=== PATIENT | female | born 1970 | race African-American/Black ===

== ENCOUNTER 2017-04-26 17:53 | Emergency (ER) | payer BC, OTHER ==
[~2017-04-26] VITALS: Ht 162.6 cm; Wt 105.5 kg
[2017-04-26 17:55] VITALS: Ht 162.6 cm; Wt 105.5 kg
[2017-04-26] MEDS ORDERED: ONDANSETRON (ODT) 4 MG TAB ODT STA (19:02)
--- NOTE | 2017-04-26 19:22 | RADRPT ---
PROCEDURE: CT Brain without contrast. CLINICAL INDICATION: fall down stairs and hit back on head on concrete with LOC TECHNIQUE: A CT of the brain was performed on a [employer] 64-slice CT scanner utilizing axial imaging from the skull base through the vertex without IV contrast. Multiplanar reformatted images were made. Images were reviewed on a PACS workstation. The CTDIvol is 43.6 mGy and the DLP is 720 mGycm. COMPARISON: None FINDINGS: There is no intracranial hemorrhage, mass effect, or midline shift. No extra-axial fluid collection is seen. The ventricles and sulci are normal in size and configuration. The density of the brain is normal, and the win white matter differentiation appears well-preserved. There are nonspecific ca lcifications along the tentorium in the posterior fossa. The visualized paranasal sinuses and osseo us structures are grossly unremarkable. IMPRESSION: 1. No evidence of acute intracranial pathology. Physician Lobo Date Time Electronically viewed and signed by Murtaza Zuniga Physician on 04/26/2017 19:22 ML/
--- NOTE | 2017-04-26 19:27 | RADRPT ---
PROCEDURE: CT Cervical Spine. CLINICAL INDICATION: fall down stairs and hit back on head on concrete with LOC TECHNIQUE: A CT of the cervical spine was performed on a [employer] 64-slice CT scanner ut ilizing thin section axial images from the skull base through the thoracic inlet. Sagittal and tavon nal reformatted images were made. The CTDIvol is 22.3 mGy and the DLP is 517 mGycm. COMPARISON: None. FINDINGS: There is straightening of the cervical spine. No vertebral body subluxation is seen. No fractures are evident. There are multilevel uncovertebral degenerative arthritic changes The surrounding sof t tissues are normal in appearance. Mild multilevel degenerative changes of the dxh-bk-axqol cervic al spine are present as evidenced by disk space narrowing and small anterior osteophytes. No signifi cant disk bulge is present. The central canal and foramina are adequately patent at all levels. IMPRESSION: No acute fracture nor subluxation involving the cervical spine. Mild multilevel degenerative disk changes as well as chronic uncovertebral degenerative changes. Straightening of the normal cervical lordosis may be due to muscle spasm. Physician Lobo Date Time Electronically viewed and signed by Physician Lobo on 04/26/2017 19:26 ML/
[2017-04-26] MEDS ORDERED: morphine 10 MG INJ IM ONE (19:30)
--- NOTE | 2017-04-26 19:38 | ERD ---
ER Documentation Chief Complaint Date/Time DATE: 04/26/17 TIME: 19:33 Chief Complaint 8/10 head and right shoulder pain x 1 hour +KO HPI This is a 46-year-old -[place] female who presents to the emergency department with headache neck pain and right shoulder pain that occurred an hour prior to arrival. The patient stated she was at her sister's house when she slipped and fell down 5 steps. She hit the back of her head and right shoulder on cement. She stated she had a brief transient loss of consciousness of several seconds. She is complaining of a headache but denies any changes in vision and no numbness or tingling of her upper extremities. She indicates that the right shoulder pain is exacerbated with movement, 8 out of 10 in intensity and the headache is also 8 out of 10 in intensity. She denies any difficulty breathing. She has no chest pain or abdominal pain. She was able to ambulate afterwards and denies any pain of her lower extremities or hands. She is right-handed dominant. She did not take any analgesic medication prior to arrival ROS All systems reviewed and are negative except as per history of present illness. Allergies Allergies: Coded Allergies: No Known Allergy (Unverified , 04/26/17) PMhx/Soc Medical and Surgical Hx: pt denies Surgical Hx History of Surgery: No Anesthesia Reaction: No Hx Neurological Disorder: No Hx Respiratory Disorders: No Hx Cardiac Disorders: Yes (HTN) Hx Psychiatric Problems: No Hx Miscellaneous Medical Probl: No Hx Alcohol Use: No Hx Substance Use: No Hx Tobacco Use: No Smoking Status: Unknown if ever smoked Physical Exam Vitals Vital Signs Date Time Temp Pulse Resp B/P Pulse Ox O2 Delivery O2 Flow Rate FiO2 04/26/17 17:55 98.0 109 18 185/121 99 Physical Exam Constitutional:Well-developed. Well-nourished. HEENT:Normocephalic. Atraumatic.Pupils were equal round reactive to light. Moist mucous membranes.No tonsillar exudates. No nasoseptal hematoma. No hemotympanum. Neck: No nuchal rigidity. No lymphadenopathy. Posterior cervical spine tenderness over C4-C5 with no step-offs. Respiratory: Not using accessory muscles of respiration.Lungs were clear to auscultation bilaterally. No rhonchi. No rales. No wheezing. Cardiovascular: Regular rate regular rhythm.No murmurs. No rubs were appreciated.S1, S2 normal. Distal pulses are palpable 2+ bilaterally. GI: Abdomen was soft. Nontender. Non Distended. No pulsatile abdominal masses or bruits. No rebound. No guarding. Bowel sounds were present and normal. Muscle skeletal: Full range of motion of both the upper and lower extremities bilaterally.Normal muscle tone.No assymetrical calf tenderness or swelling. Tenderness of the right acromioclavicular joint and normal lie to the right humeral head. Flexion extension of the bilateral elbows appear grossly normal. No tenderness over the bilateral wrists. Skin: No petechia, no purpura. No lesions on the palms or the soles of the feet. No maculopapular rash. NEURO: Patient was alert, awake, orientated x3.No facial droop. Gait observed and normal with no ataxia.Speech had regular rate and rhythm. No focal neurological deficits. Sensation intact over the radial ulnar and median nerve just a patient bilaterally Results 24 hrs Current Medications Medications (Trade) Dose Ordered Sig/Susannah Route PRN Reason Start Time Stop Time Status Last Admin Dose Admin Morphine Sulfate (morphine) 4 mg ONCE ONCE IM 04/26/17 19:30 04/26/17 19:31 DC 04/26/17 19:30 Ondansetron HCl (Zofran Odt) 4 mg ONCE STAT ODT 04/26/17 19:02 04/26/17 19:05 DC 04/26/17 19:29 Procedures/MDM This patient presented to the emergency department with closed head injury after mechanical trip and fall. Utilizing the Nexus criteria radiographic imaging was obtained of the patient's head and neck. This was reviewed by myself and the radiologist and there is no evidence of acute fracture or dislocation. There is no intracerebral hemorrhage. The radiographic imaging of the patient's shoulder showed no evidence of fracture or dislocation. The patient received IV morphine and Zofran for analgesic control. I did indicate to the patient that she had symptoms suggestive of an acute concussion but she felt comfortable being discharged home and she had a friend who was going to be picking her up. She was placed in a shoulder sling for immobilization and comfort and afterwards showed no signs of neurovascular compromise station or compartment syndrome. She was instructed to undergo physiotherapy and follow-up with her primary care physician to prevent complications of the right shoulder and to undergo an MRI on an outpatient basis. She was sent home with analgesic medication which included Motrin and [place]. The patient was discharged home in fair condition. They were instructed to return to the emergency department at any time if there was any worsening of their condition. The patient stated they would follow up with their PCP in the next 24-48 hours to initiate a suitable medication regimen under the care of their PCP as well as to allow their PCP to monitor any drug reactions. The patient was discharged home with prescriptions after they gave informed consent to the new medication. They were also fully informed by myself on the adverse effects and adverse drug interactions in order to provide adequate safeguards to prevent possible adverse reactions to medications. Departure Diagnosis: Primary Impression: Sprain of cervical neck Encounter type: initial encounter Qualified Code: S13.9XXA - Sprain of cervical neck, initial encounter Additional Impressions: Head concussion Encounter type: initial encounter Loss of consciousness presence/duration: with LOC of 30 min or less Qualified Code: S06.0X1A - Head concussion, with LOC of 30 min or less, initial encounter Sprain of shoulder, right Encounter type: initial encounter Shoulder sprain type: unspecified sprain Qualified Code: S43.401A - Sprain of right shoulder, unspecified shoulder sprain type, initial encounter Condition: Fair MARY DUMAS Apr 26, 2017 19:38
[2017-04-26] MEDS ORDERED: IBUP800T25 PO (19:39)
[2017-04-26] MEDS ORDERED: HYDR-906 PO (19:39)
--- NOTE | 2017-04-26 20:00 | RADRPT ---
PROCEDURE: XR Shoulder. CLINICAL INDICATION: Trauma TECHNIQUE: 2 views of the right shoulder are available for review. COMPARISON: None available FINDINGS: The humeral head is located. Mild AC joint arthrosis. There is no acute osseous or articular abnorm ality. No evidence for fracture. The visualized portions of the right lung are clear . IMPRESSION: 1. No acute osseous abnormality. 2. Mild AC joint arthrosis. RPTAT: HH .Yann Holman MD, MD Date Time Electronically viewed and signed by .Yann Holman MD, MD on 04/26/2017 20:00 .d/
[2017-04-26 21:06] VITALS: BP 138/96; PULSE 64; RESP 15; TEMP 98.2
== END 2017-04-26 21:10 | disposition home or self-care (01) ==
LOC: E/R 17:53
DX: S06.0X1A Concussion with loss of consciousness of 30 minutes or less, initial encounter (principal); S13.9XXA Sprain of joints and ligaments of unspecified parts of neck, initial encounter; S43.401A Unspecified sprain of right shoulder joint, initial encounter; I10 Essential (primary) hypertension; R40.2142 Coma scale, eyes open, spontaneous, at arrival to emergency department; R40.2252 Coma scale, best verbal response, oriented, at arrival to emergency department; R40.2362 Coma scale, best motor response, obeys commands, at arrival to emergency department; W10.9XXA Fall (on) (from) unspecified stairs and steps, initial encounter; Y92.009 Unspecified place in unspecified non-institutional (private) residence as the place of occurrence of the external cause
CPT/HCPCS: 70450; 72125; 73030; 96372; J2270; Z7502; Z7610

== ENCOUNTER 2019-04-30 19:57 | Emergency (ER) | payer BC ==
[~2019-04-30] VITALS: Ht 162.6 cm; Wt 100.0 kg
[~2019-04-30 19:57] MED LIST: HYDR-4011 PO; IBUP800T48 PO
[2019-04-30 20:11] VITALS: Ht 162.6 cm; Wt 100.0 kg
--- NOTE | 2019-04-30 20:52 | ERD ---
ER Documentation Chief Complaint Chief Complaint Slipped in shower, hit back of head, twisted R ankle/pain X 1 hr ago HPI This is a 48-year-old female presents here to emerge department with complaints of headache, right ankle pain after falling an hour prior to arrival here in the emergency department. Stated that she was in the shower, tripped, fell backwards landed the back of her head on a concrete, had a loss of consciousness for about a minute, twisted right ankle. LMP: 1 week ago. G1, . Denies headache, dizziness, neck pain, neck stiffness, throat pain, difficulty swallowing, difficulty breathing lying flat, shoulder pain, chest pain, back pain, abdominal pain, nausea, vomiting, constipation, diarrhea, urinary symptoms, or possibility being , loss of bowel and bladder control, trauma, injury, falls, difficulty walking due to pain, numbness or tingling sensation, calf pain, recent travel, recent major surgery in the last 3 weeks, calf pain, recent long travel, recent exposure to any illness, recent antibiotic use in the last 3 months, fever, chills, seizures. Past medical history: Denies. Surgical history: Denies. Social: Denies smoking, use of alcoholic beverages, use of illegal drugs. ROS All systems reviewed and are negative except as per history of present illness. Medications Home Meds Active Scripts Ibuprofen* (Motrin*) 800 Mg Tab, 800 MG PO Q8 PRN for PAIN AND OR ELEVATED TEMP, #30 TAB Prov:BABATUNDE WHITAKER 04/30/19 Ibuprofen* (Motrin*) 800 Mg Tab, 800 MG PO Q6H PRN for PAIN AND OR ELEVATED TEMP, #20 TAB Prov:MARY DUMAS MD 04/26/17 Hydrocodone/Acetaminophen ([place] 5-325 Tablet) 1 Each Tablet, 1 TAB PO Q6H PRN for PAIN, #10 TAB Prov:MARY DUMAS MD 04/26/17 Allergies Allergies: Coded Allergies: No Known Allergy (Unverified , 04/26/17) PMhx/Soc History of Surgery: No Anesthesia Reaction: No Hx Neurological Disorder: No Hx Respiratory Disorders: No Hx Cardiac Disorders: No Hx Psychiatric Problems: No Hx Miscellaneous Medical Probl: No Hx Alcohol Use: No Hx Substance Use: No Hx Tobacco Use: No Smoking Status: Never smoker Physical Exam Vitals Physical Exam Const: No acute distress Head: Normocephalic. Scalp is intact. Eyes: Normal Conjunctiva ENT: Normal External Ears, Nose and Mouth. Neck: Full range of motion. No meningismus. Resp: Clear to auscultation bilaterally Cardio: Regular rate and rhythm, no murmurs Abd: Soft, non tender, non distended. Normal bowel sounds Skin: No petechiae or rashes Back: No midline or flank tenderness. C-spine/T-spine/L-spine are midline with good and full range of motion and is no swelling/deformity/bulging/point of tenderness. No saddle anesthesia. Ext: No cyanosis, or edema. Right ankle: Mild swelling. No obvious deformity. Good and full range of motion but with pain. Tenderness to palpation. Right foot: No deformity. Tenderness to palpation. No swelling. Right pedal pulse within normal limits. Has good and full range of motion of right toes. Capillary feels right lower extremity is less than 2 seconds. Right knee is unremarkable. Bilateral hips are stable and unremarkable. Left lower extremity is unremarkable. No neurovascular deficit. Neur: Awake and alert. No neurological deficits. Psych: Normal Mood and Affect Results 24 hrs Laboratory Tests Test 04/30/19 21:11 POC Beta HCG, Qualitative NEGATIVE Current Medications Medications Dose Sig/Susannah Start Time Status Last (Trade) Ordered Route PRN Stop Time Admin Dose Reason Admin 1 tab ONCE ONCE 04/30/19 DC 04/30/19 Acetaminophen PO 22:00 21:42 / 04/30/19 22:01 Hydrocodone Bitart ([place] (10/325)) Ondansetron 4 mg ONCE STAT 04/30/19 DC 04/30/19 HCl (Zofran ODT 21:34 21:41 Odt) 04/30/19 21:35 Procedures/MDM Diagnostic tests: POC urine : Negative. X-ray of the right ankle: Moderate soft tissue swelling over the lateral right ankle without evidence of underlying fracture. X-ray of the right foot: Normal radiographs of the right foot. No evidence of fracture. CT of the brain: No acute intracranial abnormality. No intracranial hemorrhage, extra-axial fluid collection, mass lesion or hydrocephalus. Treatment: [place]. Zofran. Kishor wrap. Crutches with crutch training was provided by EMT. Re-evaluation: Denies pain. No neurovascular deficits prior to and after the application of Kishor wrap. No neurological deficits. Stated that she feels much better at this time. Stated that she is comfortable to go home. Differential diagnosis I have low suspicion for intracranial hemorrhage, [place], C-spine fracture, open fracture, DVT. Final diagnosis: Head injury. Right ankle soft tissue swelling. Concussion. Prescription: Motrin. Follow-up with PCP in the next 24-48 hours. Come back here in the emergency department for any new symptoms or any worsening symptoms. All questions and concerns were answered. Patient and family members verbalized understanding and agreed with plan of care. Hemodynamically stable on discharge. Departure Diagnosis: Primary Impression: Fall Additional Impressions: Ankle sprain Concussion Head injury Condition: Stable Additional Instructions: Follow-up with PCP in the next 24-48 hours. Come back here in the emergency department for any new symptoms or any worsening symptoms. BABATUNDE WHITAKER Apr 30, 2019 20:52
[2019-04-30] MEDS ORDERED: ONDANSETRON (ODT) 4 MG TAB ODT STA (21:34)
[2019-04-30 21:49] VITALS: BP 164/88; PULSE 76; RESP 19
[2019-04-30] MEDS ORDERED: HYDROCODONE/APAP (10/325) TAB PO ONE (22:00)
== END 2019-04-30 23:21 | disposition home or self-care (01) ==
LOC: FTE 19:57
DX: S06.0X0A Concussion without loss of consciousness, initial encounter (principal); S93.401A Sprain of unspecified ligament of right ankle, initial encounter; W01.198A Fall on same level from slipping, tripping and stumbling with subsequent striking against other object, initial encounter; Y92.9 Unspecified place or not applicable
CPT/HCPCS: 70450; 73610; 73630; 81025; Z7610